=== PATIENT | male | born 1980 | race Caucasian/White ===

== ENCOUNTER 2019-04-17 09:08 | Day surgery (SDC) | payer OTHER ==
[~2019-04-17] VITALS: Ht 190.5 cm; Wt 85.3 kg
[2019-04-17] MEDS ORDERED: NEURONTIN 300300 MG PO (09:50)
[2019-04-17 09:52] VITALS: BP 135/75; Ht 190.5 cm; Wt 85.3 kg
--- NOTE | 2019-04-17 12:15 | NUR ---
REC'D FROM [facility] ACCOMPANIED BY [facility] OFFICER, DRESSING WITH SMALL AMT OF BLOODY DRAINAGE TO RIGHT LOWER SIDE. ORANGE JUICE AND FL DIET SERVED.
--- NOTE | 2019-04-17 12:45 | NUR ---
VOIDED IN URINAL. TOLERATED FL DIET. OFFICERS AT BEDSIDE.
--- NOTE | 2019-04-17 13:15 | NUR ---
IV DC'D WITH CATHETER INTACT. WRITTEN AND VERBAL DC INST. GIVEN TO [facility] OFFICERS ALONG WITH RX. VERBALIZED UNDERSTANDING.
--- NOTE | 2019-04-17 13:25 | NUR ---
DC'D TO CORRECTIONAL FACILITY VIA FACILITY VEHICLE ACCOMPANIED BY [facility] OFFICERS. STABLE AT TIME OF DC.
--- NOTE | 2019-04-17 16:58 | OP ---
PATIENT NAME: CHU VINES MEDICAL RECORD: [id number] :76 [facility] AD[facility] DATE: SURGEON: DENYS NICHOLAS MD DATE OF OPERATION: 04/17/2019 PREOPERATIVE DIAGNOSIS: Posttraumatic right chest wall mass. POSTOPERATIVE DIAGNOSES: Posttraumatic right chest wall mass with small fibrous tract. PROCEDURE: Excisional debridement of right chest wall mass. The dimensions of debridement, including margins, measured 6.2 in the medial lateral dimension as well as 4.0 cm in cephalad caudad dimension. The tissues debrided were the skin and subcutaneous tissue as well as the fibrous tract. There was an intermediate closure. SURGEON: Denys Nicholas MD MEMBER SERVICE REPRESENTATIVE: None. BLOOD LOSS: 25 cc. ANESTHESIA: General. COMPLICATIONS: None. The risks, possible complications and alternatives to the procedure were explained to the patient. He elects to proceed. The discussion specifically included, but was not limited to, bleeding requiring an emergency reoperation, infection, possible need for additional procedure or procedures. The patient states that he has had 3 procedures already on this mass. I have personally reviewed the CT images prior to the operation. OPERATIVE COURSE: The patient was conveyed to the operating room electively on 04/17/2019. General anesthesia was induced by the anesthesia staff. The right chest was sterilely prepped and draped. Through the use of double curvilinear incisions, I excised the skin and subcutaneous tissue overlying the mass. I then excised the fibrous tract in the center of this mass. I approached the right costal margin. It appears that this mass is actually likely deformity due to fractured bone. It is very likely that this deformity will heal with time; however, when the bones heal, he likely will have the same protuberant deformity for the rest of his life. It would be unwise to try to fixate the bone at this site. It does not appear to be causing any functional problem. Subcutaneous flaps were created sharply. The subdermis was approximated with interrupted 3-0 Vicryls. The skin was approximated with a running intracuticular 3-0 Vicryl. Benzoin and Steri-Strips were applied. The patient was then extubated and conveyed to the post-anesthesia care unit where he was in stable condition. He is going to be dismissed back to the senior living with hydrocodone for pain. I think it would be reasonable to renew his gabapentin as he does have some neurogenic pain. There is no need for him to OPERATIVE REPORT [id number] CHU VINES follow up with me in the office unless he develops complication related to this operative procedure. I could see him on rounds out of senior living if necessary. TRANSINT:[id number] Voice Confirmation ID: [id number] DOCUMENT ID: [id number] DENYS NICHOLAS MD at 1658 CC: [id number] DICTATION DATE: 04/17/19 1200 WATER RESOURCE CONSULTANT: 04/17/19 1216 [facility] 04/17/19 [place] [id number] [place] [address]
== END 2019-04-17 13:25 | disposition home or self-care (01) ==
LOC: D.OPS 09:08
PROVIDERS: ATTEND Surgery
DX: L98.8 Other specified disorders of the skin and subcutaneous tissue (principal)